=== PATIENT | female | born 1940 | race Hispanic/Latino ===

== ENCOUNTER 2019-05-10 16:12 | Outpatient (CLI) | payer OTHER | END 2019-05-10 23:35 | disposition home or self-care (01) | LOC: RAD 16:12 | DX: M85.89 Other specified disorders of bone density and structure, multiple sites (principal) ==

== ENCOUNTER 2021-05-12 16:05 | Outpatient (CLI) | payer OTHER | END 2021-05-12 19:14 | disposition home or self-care (01) | LOC: RAD 16:05 | PROVIDERS: ATTEND Nurse Practitioner Family | DX: E55.9 Vitamin D deficiency, unspecified (principal); M17.0 Bilateral primary osteoarthritis of knee; M47.816 Spondylosis without myelopathy or radiculopathy, lumbar region; M85.89 Other specified disorders of bone density and structure, multiple sites; Z79.891 Long term (current) use of opiate analgesic ==